=== PATIENT | female | born 1955 | race African-American/Black ===

== ENCOUNTER 2017-05-07 19:31 | Emergency (ER) | payer BC, OTHER ==
[~2017-05-07] VITALS: Ht 167.6 cm; Wt 113.6 kg
[~2017-05-07 19:31] MED LIST: HYDR-3498 PO; HYDR-762 PO; LISI20TA11 PO; LOSA50TA6 PO; MECL-77 PO; MELO7.5O PO; METF500T4 PO; NAPR-688 PO; ONDA4TAB35 PO
[2017-05-07 19:33] VITALS: Ht 167.6 cm; Wt 113.6 kg
[2017-05-07] MEDS ORDERED: traMADol 50 MG TAB PO ONE (21:30)
--- NOTE | 2017-05-07 22:28 | RADRPT ---
PROCEDURE: XR Knee. CLINICAL INDICATION: Post traumatic left knee pain TECHNIQUE: AP, cross-table lateral and oblique views of the left knee were obtained. COMPARISON: None. FINDINGS: No fracture or osseous lesion is identified. The patella is lateral in position on the frontal view concerning for a lateral patellar subluxation. Mineralization is within normal limits. Severe tri compartmental osteoarthrosis is present most pronounced in the medial joint space and patellofemoral articulation. Soft tissue swelling is present. There is no evidence of joint effusion or lipohemar throsis. RPTAT:HJJR IMPRESSION: 1. Concern for lateral patella subluxation of the left knee. 2. No evidence of fracture. 3. Severe tricompartmental osteoarthrosis of the left knee. Physician Bruna Date Time Electronically viewed and signed by Physician Bruna on 05/07/2017 22:28 /
--- NOTE | 2017-05-07 22:46 | ERD ---
ER Documentation Chief Complaint Chief Complaint sp ground level fall, left knee pain HPI This is a 61-year-old female who presents emergency department today complaining of left knee pain after falling on it earlier today. Patient has a history of long-time knee pain and arthritis and did have an purchasing specialist but has not seen one for the past 6 months as she had switched primary care doctors. States that she felt like her knee gave out and has been having increased pain with walking although she walks with a cane. She takes meloxicam for pain twice a day. States that her doctor wanted to do surgery on her but has asked her to lose weight. Denies any fevers or chills. ROS All systems reviewed and are negative except as per history of present illness. Medications Home Meds Active Scripts Naproxen* (Naproxen*) 500 Mg Tablet, 500 MG PO BID Y for PAIN LEVEL 1-5, #20 TAB Prov:VIKTORIYA ESCOBAR DO 06/22/15 Hydrocodone Bit-Acetaminophen* ([facility]*) 5-325 Mg Tab, 1 TAB PO Q4H Y for PAIN LEVEL 6-10, #10 TAB Prov:VIKTORIYA ESCOBAR DO 06/22/15 Ondansetron Hcl* (Zofran* ODT) 4 mg -ODT Tab.disper, 4 MG PO Q4H Y for NAUSEA AND OR VOMITING, #14 TAB Prov:VIKTORIYA ESCOBAR DO 06/22/15 Hydrocodone Bit-Acetaminophen* ([facility]*) 10-325 Mg Tablet, 1 TAB PO Q6 Y for PAIN , #7 TAB Prov:BOSTON MOTA MD 01/29/15 Reported Medications Meloxicam* (Meloxicam*) 7.5 Mg/5 Ml Oral.susp, 15 MG PO DAILY, ML 01/29/15 Lisinopril* (Lisinopril*) 20 Mg Tablet, 20 MG PO DAILY, TAB 01/29/15 Losartan Potassium* (Losartan Potassium*) 50 Mg Tablet, 50 MG PO DAILY, TAB 01/29/15 Metformin Hcl* (Metformin Hcl*) 500 Mg Tablet, 500 MG PO BID, TAB 01/29/15 Meclizine Hcl* (Meclizine Hcl*) 25 Mg Tablet, 25 MG PO BID Y for NAUSEA AND/OR VOMITING, TAB 01/29/15 Allergies Allergies: Coded Allergies: No Known Allergy (Unverified , 01/29/15) PMhx/Soc Hx Miscellaneous Medical Probl: Yes (chronic knee pain) Hx Alcohol Use: No Hx Substance Use: No Hx Tobacco Use: No Smoking Status: Never smoker Physical Exam Vitals Vital Signs Date Time Temp Pulse Resp B/P Pulse Ox O2 Delivery O2 Flow Rate FiO2 05/07/17 19:33 97.8 95 20 160/74 100 Physical Exam Const: obese, sitting in wheelchair NAD Head: Atraumatic Eyes: Normal Conjunctiva ENT: Normal External Ears, Nose and Mouth. Neck: Full range of motion..~ No meningismus. Resp: Clear to auscultation bilaterally Cardio: Regular rate and rhythm, no murmurs Abd: Soft, non tender, non distended. Normal bowel sounds Skin: No petechiae or rashes MSK; left knee with no obvious deformity. No effusion. No ecchymosis. Full active range of motion. Pulses 2+. Distal neurovascularly intact. Neur: Awake and alert Psych: Normal Mood and Affect Results 24 hrs Current Medications Medications (Trade) Dose Ordered Sig/Daniel Route PRN Reason Start Time Stop Time Status Last Admin Dose Admin Tramadol HCl (Ultram) 50 mg ONCE ONCE PO 05/07/17 21:30 05/07/17 21:31 DC 05/07/17 21:40 DIAGNOSTIC IMAGING REPORT Patient: KALANI ARGUELLO : 1955 Age: 61 Sex: F MR #: [id number] DOS: 05/07/17 0000 Ordering MD: FRANKLIN SHEIKH PA-C Location: [facility] Room/Bed: PROCEDURE: XR Knee. CLINICAL INDICATION: Post traumatic left knee pain TECHNIQUE: AP, cross-table lateral and oblique views of the left knee were obtained. COMPARISON: None. FINDINGS: No fracture or osseous lesion is identified. The patella is lateral in position on the frontal view concerning for a lateral patellar subluxation. Mineralization is within normal limits. Severe tricompartmental osteoarthrosis is present most pronounced in the medial joint space and patellofemoral articulation. Soft tissue swelling is present. There is no evidence of joint effusion or lipohemarthrosis. RPTAT:HJJR IMPRESSION: 1. Concern for lateral patella subluxation of the left knee. 2. No evidence of fracture. 3. Severe tricompartmental osteoarthrosis of the left knee. Daniel Bloom Physician Date Time Electronically viewed and signed by Daniel Bloom Physician on 05/07/2017 22:28 JR/ CC: FRANKLIN SHEIKH PA-C Procedures/MDM This is a 61-year-old female who presents the emergency department today complaining of left knee pain after her knee gave out and she fell earlier today. Patient has a long history of chronic knee pain. I did take images for the patient today given her complaints of falling in her knee giving out. Per the radiology report images of the left knee showed some possible concern for lateral patella subluxation of the left knee however she does have full active range of motion. She does have severe tricompartmental osteoarthrosis that is present and most pronounced in the medial joint space and patellofemoral articulation. There is soft tissue swelling present. There is no evidence of joint effusion or lipohemarthrosis. No evidence for fracture or dislocation. Symptoms at this time is consistent with fall and acute on chronic knee pain secondary to osteoarthritis. Low suspicion for septic joint or gout. She is afebrile and otherwise well-appearing. Patient was given crutches to help ambulate. I have encouraged her to try to do some nonweightbearing exercise as far as swimming. She does have an appointment set up with a new primary care physician will get referral to an purchasing specialist at that time. Patient may continue taking her meloxicam. I will give her a prescription for Tylenol for home. At this time the patient is stable for discharge and outpatient management. Patient should follow up with their PCP in the next 1-2 days. They may return to the emergency department sooner for any persistent or worsening of symptoms. Patient understood and agreed with the plan. Departure Diagnosis: Primary Impression: Knee pain Chronicity: chronic Laterality: left Qualified Code: M25.562 - Chronic pain of left knee Condition: Fair FRANKLIN SHEIKH PA-C May 07, 2017 22:46
--- NOTE | 2017-05-07 22:46 | ERD ---
ER Documentation Chief Complaint Chief Complaint sp ground level fall, left knee pain HPI This is a 61-year-old female who presents emergency department today complaining of left knee pain after falling on it earlier today. Patient has a history of long-time knee pain and arthritis and did have an wildland fire fighter specialist but has not seen one for the past 6 months as she had switched primary care doctors. States that she felt like her knee gave out and has been having increased pain with walking although she walks with a cane. She takes meloxicam for pain twice a day. States that her doctor wanted to do surgery on her but has asked her to lose weight. Denies any fevers or chills. ROS All systems reviewed and are negative except as per history of present illness. Medications Home Meds Active Scripts Naproxen* (Naproxen*) 500 Mg Tablet, 500 MG PO BID Y for PAIN LEVEL 1-5, #20 TAB Prov:VIKTORIYA ESCOBAR DO 06/22/15 Hydrocodone Bit-Acetaminophen* ([place]*) 5-325 Mg Tab, 1 TAB PO Q4H Y for PAIN LEVEL 6-10, #10 TAB Prov:VIKTORIYA ESCOBAR DO 06/22/15 Ondansetron Hcl* (Zofran* ODT) 4 mg -ODT Tab.disper, 4 MG PO Q4H Y for NAUSEA AND OR VOMITING, #14 TAB Prov:VIKTORIYA ESCOBAR DO 06/22/15 Hydrocodone Bit-Acetaminophen* ([place]*) 10-325 Mg Tablet, 1 TAB PO Q6 Y for PAIN , #7 TAB Prov:BOSTON MOTA MD 01/29/15 Reported Medications Meloxicam* (Meloxicam*) 7.5 Mg/5 Ml Oral.susp, 15 MG PO DAILY, ML 01/29/15 Lisinopril* (Lisinopril*) 20 Mg Tablet, 20 MG PO DAILY, TAB 01/29/15 Losartan Potassium* (Losartan Potassium*) 50 Mg Tablet, 50 MG PO DAILY, TAB 01/29/15 Metformin Hcl* (Metformin Hcl*) 500 Mg Tablet, 500 MG PO BID, TAB 01/29/15 Meclizine Hcl* (Meclizine Hcl*) 25 Mg Tablet, 25 MG PO BID Y for NAUSEA AND/OR VOMITING, TAB 01/29/15 Allergies Allergies: Coded Allergies: No Known Allergy (Unverified , 01/29/15) PMhx/Soc Hx Miscellaneous Medical Probl: Yes (chronic knee pain) Hx Alcohol Use: No Hx Substance Use: No Hx Tobacco Use: No Smoking Status: Never smoker Physical Exam Vitals Vital Signs Date Time Temp Pulse Resp B/P Pulse Ox O2 Delivery O2 Flow Rate FiO2 05/07/17 19:33 97.8 95 20 160/74 100 Physical Exam Const: obese, sitting in wheelchair NAD Head: Atraumatic Eyes: Normal Conjunctiva ENT: Normal External Ears, Nose and Mouth. Neck: Full range of motion..~ No meningismus. Resp: Clear to auscultation bilaterally Cardio: Regular rate and rhythm, no murmurs Abd: Soft, non tender, non distended. Normal bowel sounds Skin: No petechiae or rashes MSK; left knee with no obvious deformity. No effusion. No ecchymosis. Full active range of motion. Pulses 2+. Distal neurovascularly intact. Neur: Awake and alert Psych: Normal Mood and Affect Results 24 hrs Current Medications Medications (Trade) Dose Ordered Sig/Daniel Route PRN Reason Start Time Stop Time Status Last Admin Dose Admin Tramadol HCl (Ultram) 50 mg ONCE ONCE PO 05/07/17 21:30 05/07/17 21:31 DC 05/07/17 21:40 DIAGNOSTIC IMAGING REPORT Patient: KALANI ARGUELLO : 1955 Age: 61 Sex: F MR #: [id number] DOS: 05/07/17 0000 Ordering MD: FRANKLIN SHEIKH PA-C Location: [facility] Room/Bed: PROCEDURE: XR Knee. CLINICAL INDICATION: Post traumatic left knee pain TECHNIQUE: AP, cross-table lateral and oblique views of the left knee were obtained. COMPARISON: None. FINDINGS: No fracture or osseous lesion is identified. The patella is lateral in position on the frontal view concerning for a lateral patellar subluxation. Mineralization is within normal limits. Severe tricompartmental osteoarthrosis is present most pronounced in the medial joint space and patellofemoral articulation. Soft tissue swelling is present. There is no evidence of joint effusion or lipohemarthrosis. RPTAT:HJJR IMPRESSION: 1. Concern for lateral patella subluxation of the left knee. 2. No evidence of fracture. 3. Severe tricompartmental osteoarthrosis of the left knee. Daniel Bloom Physician Date Time Electronically viewed and signed by Daniel Bloom Physician on 05/07/2017 22:28 JR/ CC: FRANKLIN SHEIKH PA-C Procedures/MDM This is a 61-year-old female who presents the emergency department today complaining of left knee pain after her knee gave out and she fell earlier today. Patient has a long history of chronic knee pain. I did take images for the patient today given her complaints of falling in her knee giving out. Per the radiology report images of the left knee showed some possible concern for lateral patella subluxation of the left knee however she does have full active range of motion. She does have severe tricompartmental osteoarthrosis that is present and most pronounced in the medial joint space and patellofemoral articulation. There is soft tissue swelling present. There is no evidence of joint effusion or lipohemarthrosis. No evidence for fracture or dislocation. Symptoms at this time is consistent with fall and acute on chronic knee pain secondary to osteoarthritis. Low suspicion for septic joint or gout. She is afebrile and otherwise well-appearing. Patient was given crutches to help ambulate. I have encouraged her to try to do some nonweightbearing exercise as far as swimming. She does have an appointment set up with a new primary care physician will get referral to an wildland fire fighter specialist at that time. Patient may continue taking her meloxicam. I will give her a prescription for Tylenol for home. At this time the patient is stable for discharge and outpatient management. Patient should follow up with their PCP in the next 1-2 days. They may return to the emergency department sooner for any persistent or worsening of symptoms. Patient understood and agreed with the plan. Departure Diagnosis: Primary Impression: Knee pain Chronicity: chronic Laterality: left Qualified Code: M25.562 - Chronic pain of left knee Condition: Fair FRANKLIN SHEIKH PA-C May 07, 2017 22:46
--- NOTE | 2017-05-07 22:46 | ERD ---
ER Documentation Chief Complaint Chief Complaint sp ground level fall, left knee pain HPI This is a 61-year-old female who presents emergency department today complaining of left knee pain after falling on it earlier today. Patient has a history of long-time knee pain and arthritis and did have an personal computer specialist but has not seen one for the past 6 months as she had switched primary care doctors. States that she felt like her knee gave out and has been having increased pain with walking although she walks with a cane. She takes meloxicam for pain twice a day. States that her doctor wanted to do surgery on her but has asked her to lose weight. Denies any fevers or chills. ROS All systems reviewed and are negative except as per history of present illness. Medications Home Meds Active Scripts Naproxen* (Naproxen*) 500 Mg Tablet, 500 MG PO BID Y for PAIN LEVEL 1-5, #20 TAB Prov:VIKTORIYA ESCOBAR DO 06/22/15 Hydrocodone Bit-Acetaminophen* ([facility]*) 5-325 Mg Tab, 1 TAB PO Q4H Y for PAIN LEVEL 6-10, #10 TAB Prov:VIKTORIYA ESCOBAR DO 06/22/15 Ondansetron Hcl* (Zofran* ODT) 4 mg -ODT Tab.disper, 4 MG PO Q4H Y for NAUSEA AND OR VOMITING, #14 TAB Prov:VIKTORIYA ESCOBAR DO 06/22/15 Hydrocodone Bit-Acetaminophen* ([facility]*) 10-325 Mg Tablet, 1 TAB PO Q6 Y for PAIN , #7 TAB Prov:BOSTON MOTA MD 01/29/15 Reported Medications Meloxicam* (Meloxicam*) 7.5 Mg/5 Ml Oral.susp, 15 MG PO DAILY, ML 01/29/15 Lisinopril* (Lisinopril*) 20 Mg Tablet, 20 MG PO DAILY, TAB 01/29/15 Losartan Potassium* (Losartan Potassium*) 50 Mg Tablet, 50 MG PO DAILY, TAB 01/29/15 Metformin Hcl* (Metformin Hcl*) 500 Mg Tablet, 500 MG PO BID, TAB 01/29/15 Meclizine Hcl* (Meclizine Hcl*) 25 Mg Tablet, 25 MG PO BID Y for NAUSEA AND/OR VOMITING, TAB 01/29/15 Allergies Allergies: Coded Allergies: No Known Allergy (Unverified , 01/29/15) PMhx/Soc Hx Miscellaneous Medical Probl: Yes (chronic knee pain) Hx Alcohol Use: No Hx Substance Use: No Hx Tobacco Use: No Smoking Status: Never smoker Physical Exam Vitals Vital Signs Date Time Temp Pulse Resp B/P Pulse Ox O2 Delivery O2 Flow Rate FiO2 05/07/17 19:33 97.8 95 20 160/74 100 Physical Exam Const: obese, sitting in wheelchair NAD Head: Atraumatic Eyes: Normal Conjunctiva ENT: Normal External Ears, Nose and Mouth. Neck: Full range of motion..~ No meningismus. Resp: Clear to auscultation bilaterally Cardio: Regular rate and rhythm, no murmurs Abd: Soft, non tender, non distended. Normal bowel sounds Skin: No petechiae or rashes MSK; left knee with no obvious deformity. No effusion. No ecchymosis. Full active range of motion. Pulses 2+. Distal neurovascularly intact. Neur: Awake and alert Psych: Normal Mood and Affect Results 24 hrs Current Medications Medications (Trade) Dose Ordered Sig/Daniel Route PRN Reason Start Time Stop Time Status Last Admin Dose Admin Tramadol HCl (Ultram) 50 mg ONCE ONCE PO 05/07/17 21:30 05/07/17 21:31 DC 05/07/17 21:40 DIAGNOSTIC IMAGING REPORT Patient: KALANI ARGUELLO : 1955 Age: 61 Sex: F MR #: [id number] DOS: 05/07/17 0000 Ordering MD: FRANKLIN SHEIKH PA-C Location: [facility] Room/Bed: PROCEDURE: XR Knee. CLINICAL INDICATION: Post traumatic left knee pain TECHNIQUE: AP, cross-table lateral and oblique views of the left knee were obtained. COMPARISON: None. FINDINGS: No fracture or osseous lesion is identified. The patella is lateral in position on the frontal view concerning for a lateral patellar subluxation. Mineralization is within normal limits. Severe tricompartmental osteoarthrosis is present most pronounced in the medial joint space and patellofemoral articulation. Soft tissue swelling is present. There is no evidence of joint effusion or lipohemarthrosis. RPTAT:HJJR IMPRESSION: 1. Concern for lateral patella subluxation of the left knee. 2. No evidence of fracture. 3. Severe tricompartmental osteoarthrosis of the left knee. Daniel Bloom Physician Date Time Electronically viewed and signed by Daniel Bloom Physician on 05/07/2017 22:28 JR/ CC: FRANKLIN SHEIKH PA-C Procedures/MDM This is a 61-year-old female who presents the emergency department today complaining of left knee pain after her knee gave out and she fell earlier today. Patient has a long history of chronic knee pain. I did take images for the patient today given her complaints of falling in her knee giving out. Per the radiology report images of the left knee showed some possible concern for lateral patella subluxation of the left knee however she does have full active range of motion. She does have severe tricompartmental osteoarthrosis that is present and most pronounced in the medial joint space and patellofemoral articulation. There is soft tissue swelling present. There is no evidence of joint effusion or lipohemarthrosis. No evidence for fracture or dislocation. Symptoms at this time is consistent with fall and acute on chronic knee pain secondary to osteoarthritis. Low suspicion for septic joint or gout. She is afebrile and otherwise well-appearing. Patient was given crutches to help ambulate. I have encouraged her to try to do some nonweightbearing exercise as far as swimming. She does have an appointment set up with a new primary care physician will get referral to an personal computer specialist at that time. Patient may continue taking her meloxicam. I will give her a prescription for Tylenol for home. At this time the patient is stable for discharge and outpatient management. Patient should follow up with their PCP in the next 1-2 days. They may return to the emergency department sooner for any persistent or worsening of symptoms. Patient understood and agreed with the plan. Departure Diagnosis: Primary Impression: Knee pain Chronicity: chronic Laterality: left Qualified Code: M25.562 - Chronic pain of left knee Condition: Fair FRANKLIN SHEIKH PA-C May 07, 2017 22:46
[2017-05-07] MEDS ORDERED: ACET500C5 PO (22:50)
[2017-05-07 23:04] VITALS: BP 145/81; PULSE 75; RESP 18
== END 2017-05-07 23:05 | disposition home or self-care (01) ==
LOC: FTE 19:31
DX: M25.562 Pain in left knee (principal); Z79.84 Long term (current) use of oral hypoglycemic drugs
CPT/HCPCS: 73562; Z7502; Z7610